=== PATIENT | male | born 2000 | race Caucasian/White ===

== ENCOUNTER 2023-10-28 18:00 | Emergency (ER) | payer OTHER, SELFPAY ==
[2023-10-28 18:13] VITALS: BP 152/86; PULSE 88; RESP 18; TEMP 37.2; O2SAT 99; BMI 25.0
--- NOTE | 2023-10-28 18:35 | ED.WOUNDLAC ---
HPI - Wound/Laceration <Jan Mathew PA-C - Last Filed: 10/28/23 19:09> General Chief Complaint: Wound/Laceration Stated Complaint: wrist injury Time Seen by Provider: 10/28/23 18:27 Source: patient Mode of arrival: Ambulatory History of Present Illness HPI narrative: 23-year-old male presents to the ED status post a puncture wound sustained at work just prior to arrival. Patient states he was wiping down a wall, when his right wrist struck a bryant piece of wire with a lot of force, puncturing his skin and penetrating about 1 in into the tissues. Patient use some force to pull his wrist of the wire. Tetanus status unknown. Patient reports some swelling and pain at the site of the injury and right thumb. No numbness, tingling, weakness. Related Data Previous Rx's Medication Instructions Recorded cephalexin 500 mg capsule 500 mg PO Q8H 5 days #15 caps 10/28/23 Allergies Allergy/AdvReac Type Severity Reaction Status Date / Time No Known Drug Allergies Allergy Verified 10/28/23 18:13 Review of Systems <Jan Mathew PA-C - Last Filed: 10/28/23 19:09> Constitutional Constitutional: Denies chills, Denies fatigue, Denies fever(s), Denies frequent falls, Denies lethargy and Denies weakness Eyes Eyes: Denies change in vision, Denies eye discharge, Denies irritation and Denies loss of vision ENT Ears, Nose, Mouth, and Throat: Denies change in voice, Denies dizziness, Denies neck pain, Denies sore throat and Denies throat swelling Cardiovascular Cardiovascular: Denies chest pain, Denies irregular heart rhythm, Denies lightheadedness, Denies palpitations, Denies dyspnea, Denies dyspnea on exertion and Denies orthopnea Respiratory Respiratory: Denies cough, Denies dyspnea, Denies dyspnea on exertion and Denies wheezing Gastrointestinal Gastrointestinal: Denies abdominal pain, Denies change in bowel habits, Denies diarrhea, Denies nausea and Denies vomiting Musculoskeletal Musculoskeletal: Denies neck pain and Denies numbness Integumentary/Breasts Skin/Breast: Denies pruritus, Denies erythema, Denies rash and Denies wounds Comments: Puncture wound on right inner wrist Neurologic Neurologic: Denies behavioral changes, Denies confusion, Denies dizziness, Denies frequent falls, Denies loss of vision, Denies numbness and Denies weakness Psychiatric Psychiatric: Denies anxiety, Denies behavioral changes, Denies confusion, Denies depression, Denies homicidal ideation and Denies suicidal ideation Endocrine Endocrine: Denies fatigue, Denies flushing and Denies palpitations Hematologic/Lymphatic Hematologic/Lymphatic: Denies easy bruising Allergic/Immunologic Allergic/Immunologic: Denies urticaria, Denies throat swelling and Denies wheezing Patient History <Jan Mathew PA-C - Last Filed: 10/28/23 19:09> Social History Smoking Status: Never smoker Smoking Status: Never smoker alcohol intake frequency: a few times a week Alcohol type: beer Substance Use Type: marijuana Exam <Jan Mathew PA-C - Last Filed: 10/28/23 19:09> Narrative Exam Narrative: Const General:?cooperative, healthy appearing and comfortable HENHI Head:?normal to inspection Ears:?hearing grossly normal bilaterally Nose:?external nose normal Face and sinus:?normal facial exam and sinuses nontender Mouth:?oral mucosae normal Throat:?posterior oropharynx normal Eyes General:?appearance normal, both eyes and all related structures Neck Neck:?normal visual inspection and no lymphadenopathy noted Resp Effort & Inspection:?normal respiratory effort Auscultation:?clear to auscultation bilaterally Cardio Rate:?regular rate Rhythm:?regular rhythm Integumentary Site of the puncture wound on the right inner wrist appears mildly swollen and erythematous. Strength and sensation is intact. There is full range of motion. Neurovascularly intact. Neuro General:?patient alert, patient awake and patient oriented x3 Initial Vital Signs Initial Vital Signs: Vital Signs Temperature 99.0 F 10/28/23 18:13 Pulse Rate 88 10/28/23 18:13 Respiratory Rate 18 10/28/23 18:13 Blood Pressure 152/86 H 10/28/23 18:13 Pulse Oximetry 99 10/28/23 18:13 Oxygen Delivery Method Room Air 10/28/23 18:13 <Laura Garcia DO - Last Filed: 10/29/23 04:55> Initial Vital Signs Initial Vital Signs: Vital Signs Temperature 99.0 F 10/28/23 18:13 Pulse Rate 88 10/28/23 18:13 Respiratory Rate 18 10/28/23 18:13 Blood Pressure 152/86 H 10/28/23 18:13 Pulse Oximetry 99 10/28/23 18:13 Oxygen Delivery Method Room Air 10/28/23 18:13 Course <Jan Mathew PA-C - Last Filed: 10/28/23 19:09> Orders Ordered: Discontinued Medications Diphtheria/Tetanus/Acell Pertussis (Tet,Diph,Pertuss(Acell),Vac/Pf 0.5 Ml Syringe) 0.5 ml IM .ONCE ONE Stop: 10/28/23 18:28 Last Admin: 10/28/23 18:41 Dose: 0.5 ml Documented By: RL Vital Signs Vital signs: Vital Signs - 8 hr 10/28/23 18:13 Temperature 99.0 F Pulse Rate 88 Respiratory Rate 18 Blood Pressure 152/86 H Pulse Oximetry 99 Oxygen Delivery Method Room Air <Laura Garcia DO - Last Filed: 10/29/23 04:55> Orders Ordered: Discontinued Medications Diphtheria/Tetanus/Acell Pertussis (Tet,Diph,Pertuss(Acell),Vac/Pf 0.5 Ml Syringe) 0.5 ml IM .ONCE ONE Stop: 10/28/23 18:28 Last Admin: 10/28/23 18:41 Dose: 0.5 ml Documented By: RL Vital Signs Vital signs: Vital Signs - 8 hr 10/28/23 18:13 Temperature 99.0 F Pulse Rate 88 Respiratory Rate 18 Blood Pressure 152/86 H Pulse Oximetry 99 Oxygen Delivery Method Room Air MDM - Wound/Laceration <Jan Mathew PA-C - Last Filed: 10/28/23 19:09> MDM Narrative Medical decision making narrative: 23-year-old male presents to the ED status post a puncture wound sustained at work just prior to arrival. Neurovascularly intact. X-ray obtained to rule out foreign body. Tetanus updated. Will prescribe antibiotics. Signs of infection discussed with patient. ED return precautions discussed with patient. Patient verbalized understanding. Medical records reviewed: Yes Discharge Plan Departure Patient Disposition: Home Clinical Impression: Puncture wound Instructions: DI for Puncture Wound Activity Restrictions/Additional Instructions: You were evaluated in the ED today for a puncture wound. You are being prescribed antibiotics. Your tetanus was updated. Please watch for signs of infection including worsening pain, swelling, warmth, redness, discharge. Return to the ED if you note any signs of infection or you experience numbness, tingling, weakness. Prescriptions: New cephalexin 500 mg capsule 500 mg PO Q8H 5 Days Qty: 15 0RF Referrals: Miscellaneous,Doctor, MD [Primary Care Provider] - Stand Alone Forms: Patient Portal/API ED Sign-out <Laura Garcia DO - Last Filed: 10/29/23 04:55> Cosign ED Attending Cosignature Attestation: Shared APC visit, physician attestation- Non [id number]: I performed a substantive part of the MDM during the patient's EMS visit. I personally made or approved the documentation management plan and acknowledges risk and complication Independent interpretation my (EKGs/x-ray/ultrasound/CT) interpretation: My interpretation of x-ray no foreign body or fracture Discussion management/test interpretation discussed with: Quincy GILMAN I was available for consultation.
--- NOTE | 2023-10-28 18:39 | DI.RAD.S_ITS ---
PROCEDURE: XR WRIST RT MIN 3V INDICATIONS: bryant wire punture wound; ?fx ?foreign body TECHNIQUE: 4 views of the wrist were acquired. COMPARISON: None. FINDINGS: Bones: No fractures or dislocations. No suspicious bony lesions. Soft tissues: No suspicious soft tissue calcifications. No radiodense foreign body identified in the soft tissues. IMPRESSION: No acute bony abnormality. No soft tissue radiodensity to suggest retained foreign body. Approved by: Laura Johnson M.D.,Ph.D. on 10/28/2023 at 20:01
[2023-10-28] MEDS: TET,DIPH,PERTUSS(ACELL),VAC/PF 0.5 ML SYRINGE IM (18:41)
== END 2023-10-28 19:09 | disposition home or self-care (01) ==
PROVIDERS: Emergency Provider Student in an Organized Health Care Education/Training Program
DX: S61.531A Puncture wound without foreign body of right wrist, initial encounter (principal); W26.8XXA Contact with other sharp object(s), not elsewhere classified, initial encounter; Y99.0 Civilian activity done for income or pay; Z23 Encounter for immunization
CPT/HCPCS: 73110; 90471; 99283; 90715